=== PATIENT | female | born 1995 | race Caucasian/White ===

== ENCOUNTER → 2022-02-24 16:18 | Outpatient (CLI) | payer OTHER, SELFPAY ==
[2022-02-24 17:39] LABS: Add Manual Diff / Slide Review NO; Basophils Absolute Auto 0 /uL (0-100); Basophils Percent Auto 0.3 % (0-2); Eosinophils Absolute Auto 200 /uL (0-450); Eosinophils Percent Auto 1.8 % (2-4); Hematocrit 38.5 % (36-46); Hemoglobin 13.2 g/dL (12.0-16.0); Lymphocytes Absolute Auto 2200 /uL (1100-4500); Lymphocytes Percent Auto 17.5 % (25-40); Mean Corpuscular HGB Conc 34.3 % (30-36); Mean Corpuscular Hemoglobin 29.3 PG (26-34); Mean Corpuscular Volume 85.5 fL (80-100); Monocytes Absolute Auto 800 /uL (0-900); Monocytes Percent Auto 6.2 % (3-14); Neutrophils Absolute Auto 9200 /uL (1500-7000); Neutrophils Percent Auto 74.2 % (50-75); Platelet Count 222 X10^3/uL (150-400); Red Cell Distribution Width 14.2 % (11.6-14.8); White Blood Cell Count 12.4 X10^3/uL (4.5-11.0)
[2022-02-24 17:41] LABS: Appearance Urine UA CLEAR; Bilirubin Urine UA NEGATIVE (NEGATIVE); Color Urine UA YELLOW; Glucose Urine UA NEGATIVE (Negative); Ketones Urine UA NEGATIVE (NEGATIVE); Leukocyte Esterase Urine UA NEGATIVE (NEGATIVE); Nitrite Urine UA NEGATIVE (Negative); Occult Blood Urine UA NEGATIVE (Negative); Protein Urine UA NEGATIVE (Negative); Urobilinogen Urine UA 0.2 E.U./dL (0.2)
[2022-02-25 16:04] LABS: Hepatitis B Surface Antigen NEGATIVE s/c (NEGATIVE); Rubella Antibody IgG 8.7 IU/mL (>15)
[2022-02-25 16:21] LABS: HIV 1 & 2 Ab/Ag 4th Gen Combo NEGATIVE (NEGATIVE); Hep C Virus Ab w/Reflex Quant NEGATIVE s/c (NEGATIVE)
[2022-02-26 02:54] LABS: Varicella IgG Antibody 321 index (Immune >165)
[2022-02-26 08:34] LABS: RPR Screen Non Reactive (Non Reactive)
[2022-02-27 21:07] LABS: AFP, Serum 36.6 ng/mL (.); Estriol, Free 0.89 ng/mL (.); Inhibin A, Dimeric 100.13 pg/mL (.); Inhibin A, MoM 0.69 (.); Maternal Ethnicity Caucasian (.); Maternal Weight 161 lbs (.); Number of Fetuses No (.); OSBR Risk 1 IN 10000 (.); Results Report (.); Test Results *Screen Negative* (.); hCG, MoM 1.18 (.); hCG, Serum 40469 mIU/mL (.)
== END ==
PROVIDERS: Referring Provider Obstetrics & Gynecology; Visit Provider Obstetrics & Gynecology
DX: Z34.01 Encounter for supervision of normal first pregnancy, first trimester (principal); Z3A.16 16 weeks gestation of pregnancy
CPT/HCPCS: 36415; 80055; 81003; 82105; 82677; 84702; 86336; 86787; 86803; 86850; 86900; 86901; 87086; 87389

== ENCOUNTER → 2022-03-19 09:20 | Outpatient (CLI) | payer OTHER, SELFPAY ==
--- NOTE | 2022-03-19 09:21 | DI.US.S_ITS ---
PROCEDURE: US OB >= 14 WEEKS FETUS INDICATIONS: ANATOMY OUTSIDE/PRIOR DATING DATA: Last menstrual period (LMP): 10/30/2021. LMP-based estimated date of delivery (VANESSA): 08/06/2022. First dating scan (date and location): 01/21/2022. Estimated date of delivery (VANESSA) from first dating scan: . TECHNIQUE: Real-time scanning was performed of the fetus, with image documentation and biometric measurements. Endovaginal scanning: Not performed. COMPARISON: [facility], US, US OB <= 14 WEEKS FETUS, 01/21/2022, 12:47. FINDINGS: General: A single living intrauterine gestation is present. Presentation: Breech. Placenta: Placental position is posterior , without previa. Amniotic fluid index: 15.5 cm, normal range is 5-24 cm. Single deepest vertical pocket is 4.5 cm. heart rate: 149 beats per minute. Maternal cervical canal: 4.5 cm long. Normal lower limit is 2.5 cm. biometrics: Biparietal diameter: 20 weeks 0 day Head circumference: 20 weeks 4 days Abdominal circumference: 19 weeks 4 days Femur length: 20 weeks 6 days Clinically estimated gestational age: 20 weeks 1 day Composite gestational age from present scan: 20 weeks 2 days Estimated weight and percentile: 336 g; 46% Anatomic survey: Neuro: Ventricles are non-dilated at less than 10 mm. Cisterna magna is normal at 3-11 mm. Cerebellum is normal in size and morphology. Nuchal skin fold: Normal at less than 6 mm between 14-21 weeks gestational age. Face: Nose and lips, facial profile are normal. Spine: No evidence for spina bifida. Heart: Suboptimal visualization of 4-chambered heart and ventricular outflow tracts. Diaphragm: Diaphragm is intact. Stomach: Left-sided stomach is present. Kidneys: No hydronephrosis. Normal is less than 5 mm in 2nd trimester, less than 7 mm in 3rd trimester. Cord: 3-vessel cord has orthotopic insertion. Bladder: Normal in size. Extremities: All 4 extremities identified. IMPRESSION: 1. A single living intrauterine gestation with appropriate interval growth. 2. heart suboptimally visualized; otherwise normal anatomic survey. Follow-up examination is suggested. We strive to produce accurate, complete, and clear reports of imaging services. To assist us in improving patient care, this report was composed using standard report templates and voice recognition software. Therefore, it may contain abnormal punctuation, insertions and/or omissions. Occasional wrong-word or sound-alike substitutions may occur. Though we review the report and make efforts to correct it, we do recommend that the report be read carefully in proper context to recognize any text inaccuracies. Dictated by: Bennie Rodriguez M.D. on 03/19/2022 at 12:36 Approved by: Bennie Rodriguez M.D. on 03/19/2022 at 12:50
== END ==
PROVIDERS: Referring Provider Obstetrics & Gynecology; Visit Provider Obstetrics & Gynecology
DX: Z34.02 Encounter for supervision of normal first pregnancy, second trimester (principal); Z3A.20 20 weeks gestation of pregnancy
CPT/HCPCS: 76811

== ENCOUNTER → 2022-03-31 14:48 | Outpatient (CLI) | payer OTHER, SELFPAY ==
--- NOTE | 2022-03-31 14:49 | DI.US.S_ITS ---
PROCEDURE: US OB FOLLOW UP INDICATIONS: Heart not completely visualized on 20 week anatomy OUTSIDE/PRIOR DATING DATA: Last menstrual period (LMP): 10/30/2021. LMP-based estimated date of delivery (VANESSA): 08/06/2022. First dating scan (date and location): 01/21/2022. Estimated date of delivery (VANESSA) from first dating scan: 08/05/2022. TECHNIQUE: Real-time scanning was performed of the fetus, with image documentation. Endovaginal scanning: Not performed COMPARISON: [facility], OB >= 14 WEEKS FETUS, 03/19/2022, 9:34. FINDINGS: A single living intrauterine gestation is present. Presentation: Breech. Placenta: Placental position is posterior, without previa. Amniotic fluid index: 11.7 cm, normal range is 5-24 cm. Single deepest vertical pocket is 3.8 cm. heart rate: 149 beats per minute. Estimated gestational age from initial scan: 21 weeks 6 days. The heart and ventricular outflow tracts remain suboptimally visualized due to lie. IMPRESSION: 1. Single living intrauterine gestation in breech presentation. 2. The heart and ventricular outflow tracts remain suboptimally visualized due to lie. Repeat evaluation could be attempted as clinically indicated. Dictated by: Octavio Quinones M.D. on 04/01/2022 at 8:50 Approved by: Octavio Quinones M.D. on 04/01/2022 at 8:57
== END ==
PROVIDERS: Referring Provider Specialist; Visit Provider Specialist
DX: Z36.2 Encounter for other antenatal screening follow-up (principal); Z3A.21 21 weeks gestation of pregnancy
CPT/HCPCS: 76816

== ENCOUNTER → 2022-05-02 10:12 | Outpatient (CLI) | payer OTHER, SELFPAY ==
[2022-05-02 12:13] LABS: Hematocrit 33.6 % (36-46); Hemoglobin 11.3 g/dL (12.0-16.0)
[2022-05-02 13:41] LABS: GTT (PREG) 1 Hour PP 50gm Dose 102 mg/dL (76-139)
== END ==
PROVIDERS: Referring Provider Obstetrics & Gynecology; Visit Provider Obstetrics & Gynecology
DX: Z34.02 Encounter for supervision of normal first pregnancy, second trimester (principal); Z3A.26 26 weeks gestation of pregnancy
CPT/HCPCS: 36415; 82950; 85014; 85018

== ENCOUNTER → 2022-05-22 14:31 | Outpatient (CLI) | payer OTHER, SELFPAY ==
[2022-05-22 20:19] LABS: Urine N gonorrhoeae NOT DETECTED
[2022-05-22 20:21] LABS: Urine Chlamydia NOT DETECTED
== END ==
PROVIDERS: Visit Provider Physician Assistant Medical
DX: Z34.03 Encounter for supervision of normal first pregnancy, third trimester (principal); Z11.3 Encounter for screening for infections with a predominantly sexual mode of transmission; Z3A.29 29 weeks gestation of pregnancy
CPT/HCPCS: 87491; 87591

== ENCOUNTER → 2022-07-17 14:38 | Outpatient (CLI) | payer OTHER, SELFPAY ==
[2022-07-18 15:50] LABS: Strep Grp B PCR NEG for Grp B Strep
== END ==
PROVIDERS: Visit Provider Obstetrics & Gynecology
DX: Z34.03 Encounter for supervision of normal first pregnancy, third trimester (principal); Z3A.37 37 weeks gestation of pregnancy
CPT/HCPCS: 87653

== ENCOUNTER 2022-08-07 15:40 | Outpatient (CLI) | payer OTHER, SELFPAY ==
--- NOTE | 2022-08-07 20:12 | P.TNLD_ITS ---
Visit Information Visit Information Date of evaluation: 08/07/22 Primary OB Provider: Tiffany Cordova On-call OB Provider: Tiffany Cordova Reason for Evaluation: Yes non-stress test non-stress test reason: other (postdates) [facility] Medical History (Updated 03/21/22 @ 14:42 by Markie Barrientos MD) Migraine Surgical History (Updated 01/20/22 @ 10:36 by Aparna Adams, RN) History of appendectomy Family History (Updated 01/20/22 @ 10:38 by Aparna Adams, RN) Father Hypertension Diabetes mellitus Grandmother Diabetes mellitus Hyperthyroidism Grandmother Hyperlipidemia Social History marital status: number of children: 0 household members: spouse lives independently: Yes housing: house pets and animals: No education level: high school occupational status: employed current occupational exposures/hazards: No special cindy needs: No seatbelt use: always helmet use: Yes water heater temp set < 120 deg: Yes working smoke detector in home: Yes fire extinguisher in home: Yes carbon monox detector in home: Yes firearms in home: No do you feel safe at home: Yes Smoking Status: Never smoker second hand exposure: No alcohol intake: former substance use type: marijuana (Several years ago, never recent) during the past year weight has: remained stable well-balanced diet: daily or most days (Much improved since ) daily servings fruits/ve-4 caffeine: Yes Type(s) of exercise: walking Evaluation Evaluation Baseline heart rate: 135 Variability: Moderate (11-25) monitor accelerations: Present Monitor Decelerations: Absent Uterine Contraction Intensity: Mild Status: Category l Diagnosis, Plan/Disposition Plan/Disposition Plan: Assessment: 40+1 wks gestation Reactive NST Plan: [facility]'s Will reach out once induction is in place OB Disposition: home
== END 2022-08-07 16:22 | disposition home or self-care (01) ==
LOC: OB 08-11 15:42
PROVIDERS: Referring Provider Obstetrics & Gynecology; Visit Provider Obstetrics & Gynecology
DX: O48.0 Post-term pregnancy (principal); Z3A.40 40 weeks gestation of pregnancy
CPT/HCPCS: 59025; G0378; G0379

== ENCOUNTER 2022-08-09 11:18 | Outpatient (CLI) | payer OTHER, SELFPAY ==
--- NOTE | 2022-08-09 12:04 | PM.OBTRLD ---
Visit Information Visit Information Date of evaluation: 08/09/22 Primary OB Provider: Tiffany Cordova On-call OB Provider: Helen Smyth Reason for Evaluation: Yes rule out labor Vital Signs Vital Signs: Temperature 36.4? blood pressure 100/63 heart rate 91 PFSH Medical History Migraine Surgical History History of appendectomy Family History Father Hypertension Diabetes mellitus Grandmother Diabetes mellitus Hyperthyroidism Grandmother Hyperlipidemia Social History marital status: number of children: 0 household members: spouse lives independently: Yes housing: house pets and animals: No education level: high school occupational status: employed current occupational exposures/hazards: No special cindy needs: No seatbelt use: always helmet use: Yes water heater temp set < 120 deg: Yes working smoke detector in home: Yes fire extinguisher in home: Yes carbon monox detector in home: Yes firearms in home: No do you feel safe at home: Yes Smoking Status: Never smoker second hand exposure: No alcohol intake: former substance use type: marijuana (Several years ago, never recent) during the past year weight has: remained stable well-balanced diet: daily or most days (Much improved since ) daily servings fruits/ve-4 caffeine: Yes Type(s) of exercise: walking Evaluation Evaluation Baseline heart rate: 130 Variability: Moderate (11-25) monitor accelerations: Present Monitor Decelerations: Absent Contraction Frequency (minutes): 6 Category of Tracing: Reactive Diagnosis, Plan/Disposition Final Diagnosis (1) 40 weeks gestation of : Status: Acute Plan/Disposition Plan: 27-year-old at 40 weeks and 3 days gestation here to rule out labor. She is been having regular contractions though not yet painful. Denies leaking or bleeding. Contractions on the monitor were every 6 minutes and mild. NST reactive. Likely in early labor. Follow-up for signs of active labor, leaking, bleeding or decreased movement. Otherwise follow-up in clinic as scheduled. OB Disposition: home
== END 2022-08-09 12:10 | disposition home or self-care (01) ==
LOC: OB 08-11 15:41
PROVIDERS: Referring Provider Obstetrics & Gynecology; Visit Provider Obstetrics & Gynecology
DX: O47.1 False labor at or after 37 completed weeks of gestation (principal); O48.0 Post-term pregnancy; Z3A.40 40 weeks gestation of pregnancy
CPT/HCPCS: 59025; G0378; G0379

== ENCOUNTER 2022-08-12 06:46 | Inpatient (IN) | payer OTHER, SELFPAY ==
[2022-08-12 08:35] LABS: Hematocrit 35.2 % (36-46); Hemoglobin 11.3 g/dL (12.0-16.0); Mean Corpuscular HGB Conc 32.1 % (30-36); Mean Corpuscular Hemoglobin 24.2 PG (26-34); Mean Corpuscular Volume 75.3 fL (80-100); Platelet Count 236 X10^3/uL (150-400); Red Blood Cell Count 4.67 X10^6/uL (4.0-5.2); Red Cell Distribution Width 16.1 % (11.6-14.8); White Blood Cell Count 10.4 X10^3/uL (4.5-11.0)
[2022-08-12 08:53] LABS: COVID19 -Nasal RAPID Negative (Negative)
[2022-08-12] MEDS: LACTATED RINGERS 1,000 ML 100 ML IV (09:08)
[2022-08-12] MEDS: OXYTOCIN PREMIX 30 UNIT/500 ML PLAST..BAG IV (09:08)
[2022-08-12 13:30] VITALS: BP 128/81
[2022-08-12] MEDS: ePHEDrine 50 MG/ML VIAL (16:54)
--- NOTE | 2022-08-12 17:47 | P.HPOB_ITS ---
OB HPI Date/Time Date of admission: 08/12/22 Date Patient Seen: 08/12/22 Time Patient Seen: 07:45 History of Present Condition Chief complaint: INDUCTION VANESSA Calculator Estimated Delivery Date Method Current WG Current Estimate 08/06/22 LMP (Certain) 40w 6d Other Estimates 08/05/22 Ultrasound #1 41w 0d Estimated Gestational Age (weeks): 41 : 1 Para: 0 care: good care, initiated at week # (11), number of visits (12) and pounds weight gain (26) Dating criteria OB: LMP confirmed by 1st trimester US Ultrasounds: normal 1st trimester US and normal mid trimester US Obstetrical complications: none Medical complications OB: none Indications Indication for induction OB: post dates Preadmission Labs Last OB Lab Results: Blood Type O Positive 08/12/22 08:00 Antibody Screen Negative 08/12/22 08:00 Hematocrit 35.2 % (36-46) L 08/12/22 08:00 Hemoglobin 11.3 g/dL (12.0-16.0) L 08/12/22 08:00 Hepatitis B Surface Antigen Negative s/c (NEGATIVE) 02/24/22 16 :48 Hepatitis C Antibody Negative s/c (NEGATIVE) 02/24/22 16:48 Rubella Antibody 8.7 IU/mL (>15) L 02/24/22 16:48 Varicella-Zoster IgG Antibody 321 index (Immune >165) 02/24/22 16:48 Glucose 1 Hour 102 mg/dL (76-139) 05/02/22 11:20 Group B Streptococcus (PCR) Neg for grp b strep 07/17/22 14:38 -: Chlamydia screen: negative, Gonorrhea screen: negative and Urine: negative -: PAP smear: Normal Genetic Screens: Quad screen: Normal External Labs -: Urine: negative Evaluation Evaluation Baseline heart rate: 135 Variability: Moderate (11-25) monitor accelerations: Present Monitor Decelerations: Absent Dilation (cm): 3 Effacement (%): 90 station: -1 [facility] Medical History Migraine Surgical History History of appendectomy Family History Father Hypertension Diabetes mellitus Grandmother Diabetes mellitus Hyperthyroidism Grandmother Hyperlipidemia Social History marital status: number of children: 0 household members: spouse lives independently: Yes housing: house pets and animals: No education level: high school occupational status: employed current occupational exposures/hazards: No special cindy needs: No seatbelt use: always helmet use: Yes water heater temp set < 120 deg: Yes working smoke detector in home: Yes fire extinguisher in home: Yes carbon monox detector in home: Yes firearms in home: No do you feel safe at home: Yes Smoking Status: Never smoker second hand exposure: No alcohol intake: former substance use type: marijuana (Several years ago, never recent) during the past year weight has: remained stable well-balanced diet: daily or most days (Much improved since ) daily servings fruits/ve-4 caffeine: Yes Type(s) of exercise: walking Meds Home Medications and Allergies Home Medications Medication Instructions Recorded Confirmed Type prenat.vits,dino,zzj-oird-qvyin 1 tab PO DAILY 07/17/22 08/07/22 History Allergies Allergy/AdvReac Type Severity Reaction Status Date / Time No Known Allergies Allergy Verified 08/07/22 15:10 OB Exam Narrative Exam Narrative: Generally: Patient is sitting up in bed, no acute distress Lungs: Clear to auscultation bilaterally Cardiovascular: Regular rate and rhythm Fundal height: 41 cm Estimated weight: 8 lb Extremities: Trace edema Objective Labs Result Diagrams: 08/12/22 08:00 Labs: Laboratory Results - last 24 hr 08/12/22 08/12/22 08/12/22 08:00 08:00 08:00 WBC 10.4 RBC 4.67 Hgb 11.3 L Hct 35.2 L MCV 75.3 L MCH 24.2 L MCHC 32.1 RDW 16.1 H Plt Count 236 SARS-CoV-2 (PCR) Negative Blood Type O Positive Antibody Screen Negative Assessment and Plan Assessment and Plan Assessment and Plan narrative: Assessment: 27-year-old 1 para 0 at 41 weeks gestation for induction of labor Favorable cervix to spontaneous vaginal delivery GBS negative Plan: Pitocin per protocol Artificial rupture of membranes when able Expected management Time Spent with Patient Total time spent with greater than 50% in coordination of care (as documented) at patient's floor/unit and/or counseling patient:: 15-24 minutes
--- NOTE | 2022-08-12 17:52 | PM.OBPNLAB ---
Date/Time Date Patient Seen: 08/12/22 Time Patient Seen: 11:45 Pain Control Pain control: tolerating well Pelvic Exam Dilation (cm): 3 Effacement (%): 90 station: -1 Contractions Contractions on admission: none Monitor mode: External Pitocin rate (mU/min): 5 Contraction frequency (min): 3 Contraction duration (min): 1 Contraction intensity: Mild Status status: Category l Heart Rate Baseline: 135 Monitor Accelerations: Present Monitor Decelerations: Absent Monitor Variability: Moderate Assessment and Plan Assessment: induction ongoing Comments: AROM with light MSF Epidural prn
--- NOTE | 2022-08-12 17:53 | PM.EVENT ---
Event Note Date Patient Seen: 08/12/22 Time Patient Seen: 17:53 Event Note (Rapid Response, Code, or fall): Called to see patient for heart rate deceleration. Pitocin was turned off. scalp electrode and intrauterine pressure catheter placed. With contractions with low [place] units, heart rate dropping into the 80s to 90s. Have tried position changes, fluid bolus, O2 per face mask. Assessment: intolerance of labor Remote from delivery Plan: Primary low-transverse section The risks, benefits, and alternatives to the procedure were explained to the patient. The risks including bleeding, infection, injury to the bowel, bladder, or ureters. She understands these risks and agrees to proceed. A full par Q was held and consent form was signed. Pediatrics notified RT notified
[2022-08-12] MEDS: CEFAZOLIN 2 GM/100 ML PREMIX 100 ML IV (18:05)
[2022-08-12] MEDS: AZITHROMYCIN 500 MG in DEXTROSE 5% IN WATER 250 ML 250 MG IV (18:16)
--- NOTE | 2022-08-12 18:28 | SUR.OPER ---
Supine on Padded OR bed, head on pillow, safety belt at thigh, arms secured on padded arm boards at <90 degrees abduction. Bump under right buttock. Legs uncrossed with pillow under knees, gel pad to heels, tape over blanket to lower legs.
--- NOTE | 2022-08-12 19:03 | SUR.OPER ---
viable baby boy born at 1833, FHT 155-160 prior to incision, 8/9, cord blood and placenta (delivered at 1839) taken to OB per OB Nurse
--- NOTE | 2022-08-12 19:14 | PM.OBCS.1 ---
Operative Date/Time/Diagnoses Date of procedure: 08/12/22 Time of procedure: 19:14 Pre-op diagnosis: Forty-one weeks gestation intolerance of labor, remote from delivery Post-op diagnosis: same Procedure & Clinicians Procedure: Primary low-transverse section Same procedure as scheduled: Yes Indications: 41 weeks gestation intolerance of labor, remote from delivery Surgeon: Tiffany Glasgow Yes if Unassisted: No Forensic Specialist: Nakia Valera Reason for Forensic Specialist: The public relations assistant was necessary to retract upon entry into the abdomen and uterus. She assisted with fundal pressure on delivery of the infant. She assisted with retraction, clipping of suture, and closure of the contralateral fascia closing of the uterus and abdomen. Anesthesia Type: Epidural (With Duramorph) Operative Notes Findings: Live male infant in the LOT presentation Normal uterus, tubes, and ovaries Closure Type: primary Specimen(s): cord blood, cord pH and placenta Intraoperative meds administered: Duramorph, Ketorolac and Pitocin Applied: Catheter (To continuous drainage) Estimated Blood Loss (mL): 350 Blood products transfused: none Procedure in detail: The patient was taken to the operating room where she was placed in the dorsal supine position with a leftward tilt. She was prepped and draped in the usual sterile fashion. A timeout was performed. After epidural analgesia was found to be adequate, a Pfannenstiel skin incision was made 2 fingerbreadths above the pubic symphysis and carried through to the underlying layer fascia. The fascia was nicked in the midline, and the incision extended bilaterally with the Vidal scissors. The superior aspect of the fascial incision was grasped with a [place] clamps, elevated, and the underlying rectus muscles dissected off sharply and bluntly. Attention was then turned to the inferior aspect of this incision which in a similar fashion was grasped with a [place] clamps, elevated, and the underlying rectus muscles dissected off sharply and bluntly. The rectus muscles were in the midline. The peritoneum was identified, grasped between 2 hemostats, and entered sharply with the Metzenbaum scissors. This incision was extended superiorly and inferiorly with good visualization of the bladder. The bladder blade was inserted with difficulty due to narrow pelvic inlet. The vesicouterine peritoneum was identified, grasped with the pickup, and entered sharply with the Metzenbaum scissors. This incision was extended bilaterally, and the bladder flap was created digitally. The bladder blade was reinserted. The lower uterine segment was incised in a transverse fashion with the scalpel. Upon entering the amniotic sac there was a small amount of meconium-stained amniotic fluid. The infant's head was delivered with vacuum assistance. The remainder of the body delivered without difficulty. The cord was double clamped and cut after 1 minute. The was handed off to waiting RN and RT. The placenta was delivered by expression. The uterus was cleared of all clots and debris. The uterine incision was repaired with #1 chromic in a running interlocking fashion, and a second layer the same suture was used for an imbricating layer. Hemostasis was achieved. The tubes and ovaries were examined and were found to be normal. The gutters were cleared of all clots and debris. The bladder flap was reapproximated using 2-0 Vicryl in a running fashion. The parietal peritoneum was closed using 2-0 Vicryl in a running fashion. The fascia was reapproximated using 0 Vicryl in a running fashion. Subcutaneous layer was copiously irrigated with warm normal saline. 5 simple interrupted sutures of 3-0 Vicryl were placed to reapproximate the subcutaneous layer. The skin was closed with 4-0 Monocryl in a subcuticular fashion. Steri-Strips were placed. An Aquacel dressing was placed. The uterus was expressed of a small amount of old blood. Sponge, lap, and instrument counts were correct x-2. The patient tolerated the procedure well, and was taken to PACU in stable condition. Complications: none Baby 1: Gender: Male Presentation: vertex Position: Left Occiput Anterior Placental Delivery Description: Expressed Cord Vessel Description: 3 Vessels and Clamped/Cut (After 1 minute) score (1 min): 8 score (5 min): 9 weight: 8 lb 4 oz Post-operative Condition: stable Disposition: PACU Aftercare: routine postop
[2022-08-12 19:18] VITALS: BP 125/65; PULSE 91; RESP 18; TEMP 36.3; O2SAT 92
[2022-08-12 19:23] VITALS: BP 112/75; PULSE 92; RESP 23; O2SAT 100
[2022-08-12 19:28] VITALS: BP 124/78; PULSE 89; RESP 16; TEMP 36.3; O2SAT 100
[2022-08-12 19:33] VITALS: BP 119/82; PULSE 94; RESP 16; O2SAT 99
[2022-08-12] MEDS: OXYCODONE IR 5 MG TABLET PO (21:24)
[2022-08-12] MEDS: ACETAMINOPHEN 325 MG TABLET 650 MG PO (21:25)
[2022-08-13] MEDS: ACETAMINOPHEN 325 MG TABLET 650 MG PO ×3 (05:06→23:45)
[2022-08-13] MEDS: KETOROLAC 30 MG/ML VIAL IV ×3 (05:06→17:09)
[2022-08-13 06:01] LABS: Hematocrit 28.9 % (36-46); Hemoglobin 9.3 g/dL (12.0-16.0)
[2022-08-13] MEDS: DOCUSATE 100 MG CAPSULE PO (09:04)
[2022-08-13] MEDS: PRENATAL VIT,CALC/IRON/FOLIC 1 TABLET 1 TAB PO (09:05)
--- NOTE | 2022-08-13 17:35 | PM.OBPN.1 ---
Subjective - OB Subjective Patient comments: no complaints, pain well controlled and incisional pain (mild) [place] baby status: doing well and nursing well [place] feeding status: exclusively breast feeding Date Patient Seen: 08/13/22 Time Patient Seen: 17:36 Interval history: Postop day # 1 status post primary low-transverse section for intolerance of labor, remote from delivery. Horta catheter out and patient has been able to void. going well. Bleeding tapering. Pain well controlled. No nausea or vomiting. She is passing gas. Exam Vital Signs (past 8 hours): Oxygen Delivery Method Room Air Narrative Exam Narrative: Generally: Patient walking around in room, no acute distress Fundus: Firm at U -1 Incision: Clean dry and intact with Aquacel dressing Extremities: 1+ edema, negative Homans Objective Labs Result Diagrams: 08/13/22 05:41 Labs: Laboratory Results - last 24 hr 08/13/22 05:41 Hgb 9.3 L Hct 28.9 L Assessment & Plan Plan day: 1 plan OB: routine postop care Time Spent With Patient Time: Total time spent is greater than 50% in coordination of care (as documented) at patient's floor/unit and/or counseling patient: Time with patient: 15-24 minutes
[2022-08-13] MEDS: IBUPROFEN 600 MG TABLET PO (23:46)
[2022-08-14] MEDS: IBUPROFEN 600 MG TABLET PO ×2 (08:42→14:24)
[2022-08-14] MEDS: PRENATAL VIT,CALC/IRON/FOLIC 1 TABLET 1 TAB PO (08:42)
[2022-08-14] MEDS: DOCUSATE 100 MG CAPSULE PO (08:42)
[2022-08-14] MEDS: ACETAMINOPHEN 325 MG TABLET 650 MG PO ×2 (08:43→14:24)
--- NOTE | 2022-08-14 09:31 | P.DS_ITS ---
Discharge Providers Provider Date of admission: 08/12/22 06:46 Discharge Date: 08/14/22 Primary care physician: Kellen CORTES Provider Consults: 08/12/22 20:59 Consult to Timber Harvester Operator Routine Comment: Discharge provider: Tiffany Cordova MD Summary Hospital Course Date Patient Seen: 08/14/22 Time Patient Seen: 09:31 Diagnoses: Forty-one weeks gestation Induction of labor intolerance of labor Primary low-transverse section Meconium-stained amniotic fluid Hospital Course: Patient is a 27-year-old 1 para 1 who presented on August 12, 2022 for a scheduled induction of labor at 41 weeks gestation. She was started on Pitocin. The heart rate dropped after an epidural down into the 70s to 80s. Patient received ephedrine to bring blood pressure back up. heart rate recovered. Pitocin was stopped during that episode. Even without Pitocin being restarted, baby's heart rate was dropping intermittently with very mild contractions. A decision was made to go to primary low-transverse sect ion. There was found to be thicker meconium stained amniotic fluid up higher and the uterus. Patient's course was unremarkable. Her Horta catheter was removed on postop day #1. She was able to void without the catheter. Her bleeding has been tapering. Pain has been well controlled with ibuprofen and Tylenol. She is tolerating a diet. No nausea or vomiting. is going well. Peripartum Data Infant Delivery Method: Emergency Section Procedures: Pitocin induction of labor Epidural analgesia scalp electrode Intrauterine pressure catheter Primary low-transverse section complications: none [place] 1: Gender: Male Disposition of : home Status at Discharge Cognitive/behavioral status at discharge: oriented Functional status at discharge: independent ambulation Overall status at discharge: patient is progressing back to baseline Time Spent with Patient Time attestation: Total time spent providing and/or coordinating discharge services: Time spent: Less than 30 minutes Objective Labs Result Diagrams: 08/13/22 05:41 Exam Vital Signs (past 8 hours): Oxygen Delivery Method Room Air Narrative Exam Narrative: Generally: Patient is sitting up on side of bed, no acute distress Lungs: Clear to auscultation bilaterally Cardiovascular: Regular rate and rhythm Fundus: Firm at U -1 Incision: Clean dry and intact with Aquacel dressing Extremities: 1+ edema, negative Homans Discharge Plan Discharge Plan Patient Disposition: Home Provider Discharge Comment: Call with fever, chills, or redness or drainage around the incision Call with bleeding more than a pad in an hour Call with leg pain, redness, or warmth Ibuprofen 600 mg every 6 hours as needed Tylenol 650 mg every 6 hours as needed Discharge orders & Medications Prescriptions: Continued prenat.vits,dino,[id number]-sbnye Tablet 1 tab PO DAILY Follow up/Referrals: Tiffany Cordova MD [Physician] - (Incision check w/ Dr. Cordova: , Aug 21 @ 3:30pm 6 week appt: Sep 24 @ 9am) Diet/Activity/Treatments Diet: Regular Activity: Nothing in the vagina for 6 weeks No heavy lifting, nothing more than a gal of milk Skin/Wound/Dressing Care Report to your healthcare provider any signs of infection, such as:: chills, fever, increased pain, unusual drainage and unusual redness Visit Report/Discharge Packet Instructions: DI for Stand Alone Forms: Discharge: Care, Patient Portal/API, Stroke Signs & Symptoms Discharge Data Primary Care Provider: Kellen Huang
[2022-08-14] MEDS: MEASLES,MUMPS,RUBELLA VACC/PF 0.5 ML VIAL SUBCUT (13:15)
== END 2022-08-14 14:50 | disposition home or self-care (01) | DRG 788 ==
PROVIDERS: Admitting Provider Obstetrics & Gynecology; Referring Provider Obstetrics & Gynecology; Visit Provider Obstetrics & Gynecology
PROC: 10D00Z1 Extraction of Products of Conception, Low, Open Approach (ICD-10-PCS; CPT 59514; principal; 2022-08-12 18:15)
DX: O48.0 Post-term pregnancy (principal); O76 Abnormality in fetal heart rate and rhythm complicating labor and delivery; Z3A.41 41 weeks gestation of pregnancy; Z37.0 Single live birth; Z20.822 Contact with and (suspected) exposure to COVID-19
CPT/HCPCS: 36415; 59050; 59510; 59514; 85014; 85018; 85027; 86850; 86900; 86901; 87635; C9803; G0379; J0690; J1885; J2274; J2590

== ENCOUNTER → 2022-09-08 15:05 | Outpatient (CLI) | payer OTHER, SELFPAY | PROVIDERS: Visit Provider Obstetrics & Gynecology | DX: R31.9 Hematuria, unspecified (principal) | CPT/HCPCS: 87086 ==

== ENCOUNTER 2022-10-05 03:35 | Emergency (ER) | payer OTHER, SELFPAY ==
--- NOTE | 2022-10-05 03:38 | ED_ITS ---
HPI - General Adult <Oj Jaramillo DO - Last Filed: 10/06/22 03:55> General Chief complaint: Urogenital-Female Stated complaint: RT. SIDE FLANK PAIN Time Seen by Provider: 10/05/22 03:37 History of Present Illness HPI narrative: 27F non smoker without significant chronic medical history presents with a chief complaint of about 2 days of urinary complaints including dysuria, frequency and urgency as well as right flank pain. She is had low-grade subjective fever. She denies nausea, vomiting or diarrhea. She has had no runny nose, sore throat or cough. She delivered a child on 08/12 and is no longer . Her pain is worse when she moves and improves with rest. Related Data Home Medications Medication Instructions Recorded Confirmed prenat.vits,dino,[id number] 1 tab PO DAILY 07/17/22 09/24/22 Previous Rx's Medication Instructions Recorded cefpodoxime 200 mg tablet 200 mg PO BID 10 days #20 tabs 10/05/22 Allergies Allergy/AdvReac Type Severity Reaction Status Date / Time No Known Allergies Allergy Verified 09/24/22 09:14 Review of Systems <Oj Jaramillo DO - Last Filed: 10/06/22 03:55> Review of Systems Narrative: GENERAL: Denies chills, fatigue, malaise, fever, sweats. HEENT: Denies sinus pain, ear pain, sore throat, difficulty swallowing, dizziness. RESPIRATORY: Denies dyspnea, cough, wheezing, hemoptysis, sputum. CARDIOVASCULAR: Denies chest pain, palpitations, orthopnea, edema, GASTROINTESTINAL: Denies nausea, vomiting, abdominal pain, diarrhea, constipation, melena. : See HPI MUSCULOSKELETAL: denies weakness, joint pain, or bony pain SKIN: Denies rash, skin lesions, or other NEUROLOGIC: Denies weakness, headache, numbness, change in speech, confusion, seizures, incoordination. PSYCHIATRIC: No concerning psychosocial issues. 12 point review of systems is negative except for those stated above Patient History <Oj Jaramillo DO - Last Filed: 10/06/22 03:55> Medical History Migraine Surgical History History of appendectomy Family History Father Hypertension Diabetes mellitus Grandmother Diabetes mellitus Hyperthyroidism Grandmother Hyperlipidemia Social History marital status: number of children: 0 household members: spouse lives independently: Yes housing: house pets and animals: No education level: high school occupational status: employed current occupational exposures/hazards: No special cindy needs: No seatbelt use: always helmet use: Yes water heater temp set < 120 deg: Yes working smoke detector in home: Yes fire extinguisher in home: Yes carbon monox detector in home: Yes firearms in home: No do you feel safe at home: Yes Smoking Status: Never smoker second hand exposure: No alcohol intake: former substance use type: marijuana (Several years ago, never recent) during the past year weight has: remained stable well-balanced diet: daily or most days (Much improved since ) daily servings fruits/ve-4 caffeine: Yes Type(s) of exercise: walking Smoking Status: Never smoker Exam <Oj Jaramillo DO - Last Filed: 10/06/22 03:55> Narrative Exam Narrative: GENERAL: [27] year old patient appears stated age. Well-developed patient, in mild distress. HEAD: Atraumatic. Normocephalic. EYES: Pupils equal round and reactive. Extraocular motions intact. No scleral icterus. No injection or drainage. ENT: Nose without bleeding, purulent drainage. Throat without erythema, tonsillar hypertrophy or exudate. Airway patent. NECK: Trachea midline. Non tender CARDIOVASCULAR: Regular rate and rhythm without murmurs, gallops, or rubs. RESPIRATORY: Clear to auscultation. Breath sounds equal bilaterally. No wheezes, rales, or rhonchi. GASTROINTESTINAL: Abdomen soft, non-tender, nondistended. EXTREMITIES: No edema or joint tenderness. BACK: Nontender without deformity or crepitance. No flank tenderness. NEURO: AOx3. SKIN: No rash or erythema of visible areas Initial Vital Signs Initial Vital Signs: Vital Signs Temperature 98.5 F 10/05/22 03:47 Pulse Rate 76 10/05/22 03:47 Respiratory Rate 16 10/05/22 03:47 Blood Pressure 149/97 H 10/05/22 03:47 Pulse Oximetry 99 10/05/22 03:47 Oxygen Delivery Method 10/05/22 03:47 <DO Trista Contreras Last Filed: 10/05/22 08:42> Initial Vital Signs Initial Vital Signs: Vital Signs Temperature 98.5 F 10/05/22 03:47 Pulse Rate 76 10/05/22 03:47 Respiratory Rate 16 10/05/22 03:47 Blood Pressure 149/97 H 10/05/22 03:47 Pulse Oximetry 99 10/05/22 03:47 Oxygen Delivery Method 10/05/22 03:47 Course <DO Trista Jimenez Last Filed: 10/06/22 03:55> Orders Ordered: Discontinued Medications Cefazolin Sodium (Cephalexin 250 Mg Prepack) 1 bottle MISC SEEINSTR ONE Stop: 10/05/22 03:50 Last Admin: 10/05/22 04:28 Dose: 8 cap Documented By: RADHIKA Vital Signs Vital signs: Vital Signs - 8 hr 10/05/22 03:47 10/05/22 04:29 10/05/22 04:29 Temperature 98.5 F Pulse Rate 76 79 Respiratory Rate 16 Blood Pressure 149/97 H 151/99 H Pulse Oximetry 99 97 Oxygen Delivery Method Room Air Room Air 10/05/22 04:30 Temperature Pulse Rate 79 Respiratory Rate Blood Pressure Pulse Oximetry 98 Oxygen Delivery Method Room Air <DO Trista Contreras Last Filed: 10/05/22 08:42> Orders Ordered: Discontinued Medications Cefazolin Sodium (Cephalexin 250 Mg Prepack) 1 bottle MISC SEEINSTR ONE Stop: 10/05/22 03:50 Last Admin: 10/05/22 04:28 Dose: 8 cap Documented By: RADHIKA Vital Signs Vital signs: Vital Signs - 8 hr 10/05/22 03:47 10/05/22 04:29 10/05/22 04:29 Temperature 98.5 F Pulse Rate 76 79 Respiratory Rate 16 Blood Pressure 149/97 H 151/99 H Pulse Oximetry 99 97 Oxygen Delivery Method Room Air Room Air 10/05/22 04:30 Temperature Pulse Rate 79 Respiratory Rate Blood Pressure Pulse Oximetry 98 Oxygen Delivery Method Room Air Medical Decision Making <DO Trista Jimenez Last Filed: 10/06/22 03:55> Lab Data Labs: Lab Results 10/05/22 10/05/22 Range/Units 03:40 03:40 Ur Bilirubin Confirm Negative (Negative) Urine RBC 1-5/hpf (0-5/HPF) Urine WBC None seen (0-5/HPF) Ur Squamous Epith Cells 1-5 /hpf (0-5/HPF) Urine Bacteria None seen (None) Ur Culture Indicated? Cult not indicated Micro UA Comment * Point of Care Testing Test Results Negative Urine Dip Bedside Urine Glucose 250 mg/dl Bedside Urine Bilirubin +++ 4 Bedside Urine Ketone +/- 5 Urine Specific [place] 1.025 Bedside Urine Occult Blood + Bedside Urine pH 5.0 Bedside Urine Protein - Negative Bedside Urine Urobilinogen 3+ 8mg Bedside Urine Nitrite + Positive Bedside Urine Leukocytes ++ 125 Esterase Point of care testing: Point of Care Testing Test Results Negative Urine Dip Bedside Urine Glucose 250 mg/dl Bedside Urine Bilirubin +++ 4 Bedside Urine Ketone +/- 5 Urine Specific [place] 1.025 Bedside Urine Occult Blood + Bedside Urine pH 5.0 Bedside Urine Protein - Negative Bedside Urine Urobilinogen 3+ 8mg Bedside Urine Nitrite + Positive Bedside Urine Leukocytes ++ 125 Esterase MDM Narrative Medical decision making narrative: [27] year old patient presents with right flank pain as well as dysuria, frequency and urgency Multiple etiologies for patient's symptoms considered including, but not limited to: [Cystitis, pyelonephritis, kidney stone, versus other] Prior Charts reviewed in our EMR Primary Historian: patient Labs reviewed and interpreted by myself: UA with blood and evidence of UTI Imaging reviewed: CT KUB Consultations: Patient's symptoms improved over duration of stay with above-stated therapies. Findings and discharge diagnosis discussed with patient/family followed by verbalization of understanding Return precautions discussed with patient/family whom verbalize understanding of diagnosis and plan <Saundra Quintero, DO - Last Filed: 10/05/22 08:42> Lab Data Labs: Lab Results 10/05/22 10/05/22 Range/Units 03:40 03:40 Ur Bilirubin Confirm Negative (Negative) Urine RBC 1-5/hpf (0-5/HPF) Urine WBC None seen (0-5/HPF) Ur Squamous Epith Cells 1-5 /hpf (0-5/HPF) Urine Bacteria None seen (None) Ur Culture Indicated? Cult not indicated Micro UA Comment * Point of Care Testing Test Results Negative Urine Dip Bedside Urine Glucose 250 mg/dl Bedside Urine Bilirubin +++ 4 Bedside Urine Ketone +/- 5 Urine Specific [place] 1.025 Bedside Urine Occult Blood + Bedside Urine pH 5.0 Bedside Urine Protein - Negative Bedside Urine Urobilinogen 3+ 8mg Bedside Urine Nitrite + Positive Bedside Urine Leukocytes ++ 125 Esterase Point of care testing: Point of Care Testing Test Results Negative Urine Dip Bedside Urine Glucose 250 mg/dl Bedside Urine Bilirubin +++ 4 Bedside Urine Ketone +/- 5 Urine Specific [place] 1.025 Bedside Urine Occult Blood + Bedside Urine pH 5.0 Bedside Urine Protein - Negative Bedside Urine Urobilinogen 3+ 8mg Bedside Urine Nitrite + Positive Bedside Urine Leukocytes ++ 125 Esterase MDM Narrative Additional Information: 10/05/22 [place]: Dr. Markie James radiology called with overread results and notes possible faint gallstones and mild gallbladder wall thickening. Patient chart reviewed. Noted to have nitrate positive urine and suspected pyelonephritis. No labs done. Patient contacted at [phone] regarding results, went to [employer], mailbox if full. Tried alternative number at [phone] noted for , able to talk with patient and states symptoms were urinary. No right upper quadrant pain. We reviewed her CT findings from today and patient is aware, all questions answered. Unaware of return precautions if she is having any new right upper quadrant pain, pain with palpation, fevers, nausea vomiting or other changes. Discharge Plan Departure Patient Disposition: Home Clinical Impression: Pyelonephritis Instructions: DI for Kidney Infection Activity Restrictions/Additional Instructions: *You have been diagnosed with [pyelonephritis] *What to do: *Please continue to take your regular medications as directed. [x ] New medication prescriptions sent to your pharmacy: [[facility] ] [ ] New medication written as a paper prescription [ ] No new medications given *Please follow up with your primary care provider in 2-3 days, call for an appointment. Let them know you were seen in the Emergency Department and that we ask that you be seen in follow up. We will electronically transmit a record of today's note if your PCP is in our system *If you do not have a primary care provider please contact the [facility] Resource line at [phone]. They will ask some questions about your medical history and help get you set up with a doctor in the community. *Return to Emergency Department if you should have any new, worsening or concerning symptoms, such as [fever greater than 101 F, shaking chills, worsening pain, persistent vomiting or other bothersome symptoms] Prescriptions: New cefpodoxime 200 mg tablet 200 mg PO BID 10 Days Qty: 20 0RF Rx Instructions: must administer with a meal/food No Action prenat.vits,dino,[id number] Tablet 1 tab PO DAILY Referrals: ProviderKellen [Primary Care Provider] - Stand Alone Forms: Patient Portal/API
[2022-10-05 03:47] VITALS: BP 149/97; PULSE 76; RESP 16; TEMP 36.9; O2SAT 99; BMI 35.5
--- NOTE | 2022-10-05 03:48 | DI.CT.S_ITS ---
PROCEDURE: CT KIDNEY URETER BLADDER (KUB) INDICATIONS: R flank pain TECHNIQUE: Axial sections were acquired from the lung bases to the pubic symphysis. Coronal and sagittal reformats were performed. For radiation dose reduction, the following was used: automated exposure control, adjustment of mA and/or kV according to patient size. COMPARISON: None. FINDINGS: Image quality: Excellent. Lung bases: Unremarkable. Heart: No significant findings. URINARY: Right Kidney: No stones or hydronephrosis. Right Ureter: No hydroureter. Left Kidney: No stones or hydronephrosis. Left Ureter: No hydroureter. Bladder: Normal wall thickness. No stones. ABDOMEN: Liver: Unremarkable. Gallbladder: Suggestion of possible very faint non calcified gallstones. Question mild gallbladder wall thickening. Biliary ducts: Unremarkable. Pancreas: Unremarkable. Spleen: Unremarkable. Adrenal Glands: Unremarkable. Stomach and Bowel: Stomach, small bowel loops, and colon are unremarkable. Peritoneum: No abnormal intraperitoneal fluid. No free air. Ventral Wall: No hernia. Abdominal Nodes: No enlarged retroperitoneal or mesenteric lymph nodes. Vessels: Aorta and inferior vena cava are normal in size. PELVIS: Pelvic Organs: Unremarkable. Pelvic Nodes: Unremarkable. Miscellaneous: No inguinal hernias are seen. Bones: Unremarkable. IMPRESSION: 1. Probable cholelithiasis. Question gallbladder wall thickening. 2. No renal stones or ureteral stones. No hydronephrosis. Comment: Preliminary interpretation provided by [facility]. Comment: Findings were discussed with Dr. Quintero at the time of study dictation on 10/05/2022 at 0829 hours. Dictated by: Jacob Aden M.D. on 10/05/2022 at 8:23 Approved by: Jacob Aden M.D. on 10/05/2022 at 8:31
[2022-10-05 04:01] LABS: Ictotest Urine Negative (Negative)
[2022-10-05 04:12] LABS: Bacteria Urine None Seen; Culture Indicated Urine Cult Not Indicated; RBC Urine 1-5/HPF (0-5/HPF); Squamous Epithelial Cell Urine 1-5 /HPF (0-5/HPF); WBC Urine None Seen (0-5/HPF)
[2022-10-05] MEDS: cephALEXin 250 MG PREPACK 1 BOTTLE MISC (04:28)
[2022-10-05 04:29] VITALS: BP 151/99; PULSE 79; O2SAT 97
[2022-10-05 04:30] VITALS: PULSE 79; O2SAT 98
--- NOTE | 2022-10-05 04:34 | PC.NURSE ---
Patient assessment completed by Dr. Jaramillo. This nurse in agreement.
== END 2022-10-05 04:36 | disposition home or self-care (01) ==
PROVIDERS: Emergency Provider Emergency Medicine
DX: N12 Tubulo-interstitial nephritis, not specified as acute or chronic (principal)
CPT/HCPCS: 74176; 81003; 81015; 81025; 99282; 99284

== ENCOUNTER 2022-10-09 03:15 | Observation (INO) | payer OTHER, SELFPAY ==
[2022-10-09] VITALS (16 sets, daily range): BP systolic 119–142; BP diastolic 63–87; PULSE 61–99; RESP 12–24; TEMP 36.6–36.8; O2SAT 92–100; BMI 34.7; BMI 28.6
--- NOTE | 2022-10-09 | PATH_ITS ---
[facility] Accession Number: [id number] No. of containers..01 Tissue . 01 Material submitted: . gallbladder - GALLBLADDER . 01 Diagnosis: Gallbladder, Cholecystectomy: Mild chronic calculous cholecystitis and cholesterolosis. Negative for atypia and malignancy. MRV 10/14/2022 1404 Local . 01 Electronically signed: . Camila Santos MD, Pathologist NPI- [id number] . 01 Gross description: . The specimen is received in formalin labeled with the patient's name, , and gallbladder, and consists of an intact gallbladder measuring 8.0 x 2.4 x 1.8 cm with pink to congested smooth serosa and a rough and unremarkable hepatic surface. The cystic duct is received closed with a clamp, is inked blue, and no pericystic lymph node is identified. The lumen contains multiple green to yellow bosselated calculi admixed with solidified pale green bile with the calculi measuring up to 0.5 cm in greatest dimension grossly obstructing the cystic duct. The mucosa is red to sher and trabecular with no pinpoint yellow areas of discoloration, polyps, or lesions identified. The lerner average 0.4 cm thick, and automotive leasing sales representative sections to include the cystic duct margin and full thickness sections are submitted in cassette A1. ([id number]) /CARLIN 10/10/2022 1127 Local . 01 Pathologist provided ICD-10: K80.20 . 01 CPT . 301845 Specimen Comment: A courtesy copy of this report has been sent to [phone] Performed at: 01 [facility] [address] [place] [address] [address] [facility], [place], [place] [id number] MD Ajay Monsivais MD Phone: [phone]
--- NOTE | 2022-10-09 03:17 | ED_ITS ---
HPI - Abdominal Pain General Chief Complaint: Abdominal Pain Stated Complaint: level 6 pain of gall bladder Time Seen by Provider: 10/09/22 03:17 History of Present Illness HPI narrative: 27F non smoker without significant chronic medical history presents with a chief complaint of?right upper quadrant pain with radiation to her back and shoulder with associated nausea. She had been seen and evaluated earlier in the week by myself and had presented with urinary complaints and flank pain in the absence of abdominal pain and was placed on antibiotics and diagnosed with pyelonephritis. She feels significantly better in terms of her urinary complaints. There was an over-read on the CT KUB suggestive of possible gallstones and patient was contacted and encouraged to come back and see us if her symptoms worsened. She states that she had rather significant right upper quadrant pain with radiation over the weekend but improved on Thursday until last evening when she ate some Cheetos it seemed to really flare up. Her pain is 6/10, made worse by eating, drinking and moving radiates as mentioned above. She is not breast-feeding her child. She has been NPO since 8:00 p.m. Related Data Home Medications Medication Instructions Recorded Confirmed prenat.vits,dino,hlw-vzct-[id number] 1 tab PO DAILY 07/17/22 09/24/22 Previous Rx's Medication Instructions Recorded cefpodoxime 200 mg tablet 200 mg PO BID 10 days #20 tabs 10/05/22 Allergies Allergy/AdvReac Type Severity Reaction Status Date / Time No Known Allergies Allergy Verified 09/24/22 09:14 Review of Systems Review of Systems Narrative: GENERAL: Denies chills, fatigue, malaise, fever, sweats. HEENT: Denies sinus pain, ear pain, sore throat, difficulty swallowing, dizziness. RESPIRATORY: Denies dyspnea, cough, wheezing, hemoptysis, sputum. CARDIOVASCULAR: Denies chest pain, palpitations, orthopnea, edema, GASTROINTESTINAL: See HPI : Denies dysuria, frequency, incontinence, hematuria, urinary retention. MUSCULOSKELETAL: denies weakness, joint pain, or bony pain SKIN: Denies rash, skin lesions, or other NEUROLOGIC: Denies weakness, headache, numbness, change in speech, confusion, seizures, incoordination. PSYCHIATRIC: No concerning psychosocial issues. 12 point review of systems is negative except for those stated above Patient History Medical History Migraine Surgical History History of appendectomy Family History Father Hypertension Diabetes mellitus Grandmother Diabetes mellitus Hyperthyroidism Grandmother Hyperlipidemia Social History marital status: number of children: 0 household members: spouse lives independently: Yes housing: house pets and animals: No education level: high school occupational status: employed current occupational exposures/hazards: No special cindy needs: No seatbelt use: always helmet use: Yes water heater temp set < 120 deg: Yes working smoke detector in home: Yes fire extinguisher in home: Yes carbon monox detector in home: Yes firearms in home: No do you feel safe at home: Yes Smoking Status: Never smoker second hand exposure: No alcohol intake: former substance use type: marijuana (Several years ago, never recent) during the past year weight has: remained stable well-balanced diet: daily or most days (Much improved since ) daily servings fruits/ve-4 caffeine: Yes Type(s) of exercise: walking Smoking Status: Never smoker Substance Use Type: does not use Exam Narrative Exam Narrative: GENERAL: [27] year old patient appears stated age. Well-developed patient, in mild distress. HEAD: Atraumatic. Normocephalic. EYES: Pupils equal round and reactive. Extraocular motions intact. No scleral icterus. No injection or drainage. ENT: Nose without bleeding, purulent drainage. Throat without erythema, tonsillar hypertrophy or exudate. Airway patent. NECK: Trachea midline. Non tender CARDIOVASCULAR: Regular rate and rhythm without murmurs, gallops, or rubs. RESPIRATORY: Clear to auscultation. Breath sounds equal bilaterally. No wheezes, rales, or rhonchi. GASTROINTESTINAL: Abdomen soft, tender in epigastrum and RUQ, nondistended. +Schaefer's sign EXTREMITIES: No edema or joint tenderness. BACK: Nontender without deformity or crepitance. No flank tenderness. NEURO: AOx3. SKIN: No rash or erythema of visible areas Initial Vital Signs Initial Vital Signs: Vital Signs Temperature 97.9 F 10/09/22 03:30 Pulse Rate 83 03/02/23 03:30 Respiratory Rate 20 10/09/22 03:30 Blood Pressure 142/83 H 10/09/22 03:30 Pulse Oximetry 99 10/09/22 03:30 Oxygen Delivery Method Room Air 10/09/22 03:30 Course Orders Ordered: ED Orders 10/09/22 04:01 US abdomen limited Stat 10/09/22 04:25 Complete Blood Count AUTO DIFF Stat Comprehensive Metabolic Panel Stat Lipase Stat Discontinued Medications Hydromorphone HCl (Hydromorphone 0.5 Mg Inj) 0.5 mg IV NOW ONE Stop: 10/09/22 04:15 Last Admin: 10/09/22 04:34 Dose: 0.5 mg Documented By: ELIZABETH Sodium Chloride (Normal Saline 0.9%) 1,000 mls @ 1,000 mls/hr IV BOLUS ONE Stop: 10/09/22 04:59 Last Infusion: 10/09/22 05:45 Dose: 0 mls/hr Documented By: Admin: 10/09/22 04:34 Dose: 1,000 mls/hr Documented By: ELIZABETH Vital Signs Vital signs: Vital Signs - 8 hr 10/09/22 03:30 Temperature 97.9 F Pulse Rate 83 Respiratory Rate 20 Blood Pressure 142/83 H Pulse Oximetry 99 Oxygen Delivery Method Room Air MDM - Abdominal Pain Lab Data 10/09/22 04:25 10/09/22 04:25 Labs: Lab Results 10/09/22 10/09/22 Range/Units 04:25 04:25 WBC 10.5 (4.5-11.0) X10^3/uL RBC 4.82 (4.0-5.2) X10^6/uL Hgb 11.9 L (12.0-16.0) g/dL Hct 36.6 (36-46) % MCV 75.8 L (80-100) fL MCH 24.6 L (26-34) PG MCHC 32.5 (30-36) % RDW 20.7 H (11.6-14.8) % Plt Count 269 (150-400) X10^3/uL Neut % (Auto) 59.4 (50-75) % Lymph % (Auto) 30.3 (25-40) % Parke % (Auto) 6.9 (3-14) % Eos % (Auto) 2.7 (2-4) % Baso % (Auto) 0.7 (0-2) % Neut # (Auto) 6300 (2385-4653) /uL Lymph # (Auto) 3200 (6901-5672) /uL Parke # (Auto) 700 (0-900) /uL Eos # (Auto) 300 (0-450) /uL Baso # (Auto) 100 (0-100) /uL Sodium 137 (137-145) mmol/L Potassium 3.8 (3.4-5.1) mmol/L Chloride 105 (98-107) mmol/L Carbon Dioxide 24 (22-32) mmol/L BUN 9 (7-17) mg/dL Creatinine 0.60 (0.52-1.04) mg/dL Estimated GFR > 60 (>60) mL/min BUN/Creatinine Ratio 15.0 (6-22) Glucose 91 (70-100) mg/dL Calcium 8.9 (8.4-10.2) mg/dL Total Bilirubin 0.4 (0.2-1.3) mg/dL AST 22 (14-36) IU/L ALT 20 (<35) IU/L Alkaline Phosphatase 135 H (38-126) U/L Total Protein 7.9 (6.3-8.2) g/dL Albumin 4.2 (3.5-5.0) g/dL Globulin 3.7 (1.7-4.1) g/dL Albumin/Globulin Ratio 1.1 (1.0-2.8) Lipase 97 (23-300) U/L [facility] Narrative Medical decision making narrative: [27] year old patient presents with right upper quadrant pain with radiation to her back Multiple etiologies for patient's symptoms considered including, but not limited to: [Gallbladder disease, pancreatitis, musculoskeletal, pyelonephritis versus other] Prior Charts reviewed in our EMR Primary Historian: patient Labs reviewed and interpreted by myself: No significant lab abnormalities Imaging reviewed: Abdominal ultrasound notes gallstones and 1 contained within the neck that is nonmobile Consultations: Dr. Guerrero, general surgery Patient's symptoms and imaging consistent with gallbladder disease in eminence surgical need. Patient requires hospitalization for treatment which is likely to include surgical intervention Discharge Plan Departure Patient Disposition: Admitted As Inpatient Clinical Impression: Cholelithiasis Admit Date/Time: 10/09/22 05:38 Admit Provider: Jp Guerrero
--- NOTE | 2022-10-09 04:01 | DI.US.S_ITS ---
PROCEDURE: US ABDOMEN LIMITED INDICATIONS: RUQ pain TECHNIQUE: Real-time scanning was performed of the abdominal and retroperitoneal organs, with image documentation. COMPARISON: None. FINDINGS: Liver: Liver is normal in size and homogeneous in echotexture. Gallbladder: Cholelithiasis including a stone impacted in the gallbladder neck. Positive sonographic Schaefer sign. No gallbladder wall thickening. Biliary ducts: Intrahepatic bile ducts are non-dilated. Extrahepatic bile duct caliber measures 6 mm. Normal is 6-7 mm or less in diameter, or 10 mm or less post-cholecystectomy. IMPRESSION: Cholelithiasis with no ultrasound findings of cholecystitis but with a positive sonographic Schaefer sign. Consider hepatobiliary nuclear scan if indicated. Comment: Final report is concordant with preliminary interpretation by [facility] Dictated by: Brayan Bobo M.D. on 10/09/2022 at 8:32 Approved by: Brayan Bobo M.D. on 10/09/2022 at 8:33
[2022-10-09] MEDS: SODIUM CHLORIDE 0.9% 1,000 ML 1000 ML IV (04:34)
[2022-10-09] MEDS: HYDROMORPHONE 0.5 MG INJ IV (04:34)
[2022-10-09 04:38] LABS: Add Manual Diff / Slide Review NO; Basophils Absolute Auto 100 /uL (0-100); Basophils Percent Auto 0.7 % (0-2); Eosinophils Absolute Auto 300 /uL (0-450); Eosinophils Percent Auto 2.7 % (2-4); Hematocrit 36.6 % (36-46); Hemoglobin 11.9 g/dL (12.0-16.0); Lymphocytes Absolute Auto 3200 /uL (1100-4500); Lymphocytes Percent Auto 30.3 % (25-40); Mean Corpuscular HGB Conc 32.5 % (30-36); Mean Corpuscular Hemoglobin 24.6 PG (26-34); Mean Corpuscular Volume 75.8 fL (80-100); Monocytes Absolute Auto 700 /uL (0-900); Monocytes Percent Auto 6.9 % (3-14); Neutrophils Absolute Auto 6300 /uL (1500-7000); Neutrophils Percent Auto 59.4 % (50-75); Platelet Count 269 X10^3/uL (150-400); Red Blood Cell Count 4.82 X10^6/uL (4.0-5.2); Red Cell Distribution Width 20.7 % (11.6-14.8); White Blood Cell Count 10.5 X10^3/uL (4.5-11.0)
[2022-10-09 04:47] LABS: Alanine Aminotransferase 20 IU/L (<35); Albumin 4.2 g/dL (3.5-5.0); Albumin Globulin Ratio 1.1 (1.0-2.8); Alkaline Phosphatase 135 U/L (38-126); Aspartate Aminotransferase 22 IU/L (14-36); Bilirubin Total 0.4 mg/dL (0.2-1.3); Blood Urea Nitrogen 9 mg/dL (7-17); Calcium 8.9 mg/dL (8.4-10.2); Carbon Dioxide 24 mmol/L (22-32); Chloride 105 mmol/L (98-107); Estimated Glomerular Filt Rate > 60 mL/min (>60); Globulin 3.7 g/dL (1.7-4.1); Glucose 91 mg/dL (70-100); HEMOLYSIS < 15 (0-50); Lipase 97 U/L (23-300); Potassium 3.8 mmol/L (3.4-5.1); Sodium 137 mmol/L (137-145); Total Protein 7.9 g/dL (6.3-8.2)
[2022-10-09 06:39] LABS: Anisocytosis 1+
--- NOTE | 2022-10-09 09:58 | P.HP_ITS ---
History of Present Illness History of Present Illness Date Patient Seen: 10/09/22 Time Patient Seen: 09:59 Chief complaint: level 6 pain of gall bladder Narrative: Sakshi is a 27-year-old woman who presented with right upper quadrant pain was found to have gallstones. Pain had been gradually increasing over the past week or so. Patient History Medical History Migraine Surgical History History of appendectomy Family & Social History Family History Father Hypertension Diabetes mellitus Grandmother Diabetes mellitus Hyperthyroidism Grandmother Hyperlipidemia Social History: household members spouse lives independently Yes Safety & Behavioral: Feels Safe in Current Yes Environment Been Physically Hurt or No Threatened By a Person Tobacco & Substance use: Smoking Status Never smoker alcohol intake former Substance Use Type does not use Meds Home Medications and Allergies Home Medications Medication Instructions Recorded Confirmed Type prenat.vits,dino,iph-dwkq-byvff 1 tab PO DAILY 07/17/22 09/24/22 History cefpodoxime 200 mg tablet 200 mg PO BID 10 days #20 tabs 10/05/22 Rx Allergies Allergy/AdvReac Type Severity Reaction Status Date / Time No Known Allergies Allergy Verified 09/24/22 09:14 Exam Vital Signs (past 8 hours): - 10/09/22 03:30 10/09/22 08:39 10/09/22 08:39 Temperature 97.9 F Pulse Rate 83 71 Respiratory Rate 20 20 Blood Pressure 142/83 H 136/82 Pulse Oximetry 99 98 Oxygen Delivery Method Room Air Oxygen Delivery Method Room Air Narrative Exam Narrative: Tender to palpation in the right upper quadrant no Schaefer sign Objective Labs 10/09/22 04:25 10/09/22 04:25 Labs: Laboratory Results - last 24 hr 10/09/22 10/09/22 04:25 04:25 WBC 10.5 RBC 4.82 Hgb 11.9 L Hct 36.6 MCV 75.8 L MCH 24.6 L MCHC 32.5 RDW 20.7 H Plt Count 269 Neut % (Auto) 59.4 Lymph % (Auto) 30.3 [place] % (Auto) 6.9 Eos % (Auto) 2.7 Baso % (Auto) 0.7 Neut # (Auto) 6300 Lymph # (Auto) 3200 [place] # (Auto) 700 Eos # (Auto) 300 Baso # (Auto) 100 RBC Morphology See below Anisocytosis 1+ H Sodium 137 Potassium 3.8 Chloride 105 Carbon Dioxide 24 BUN 9 Creatinine 0.60 Estimated GFR > 60 BUN/Creatinine Ratio 15.0 Glucose 91 Calcium 8.9 Total Bilirubin 0.4 AST 22 ALT 20 Alkaline Phosphatase 135 H Total Protein 7.9 Albumin 4.2 Globulin 3.7 Albumin/Globulin Ratio 1.1 Lipase 97 Assessment & Plan Assessment and plan (1) Cholelithiasis: Qualifiers: Cholelithiasis location: gallbladder Cholecystitis presence: without cholecystitis Biliary obstruction: without biliary obstruction Qualified Code(s): K80.20 - Calculus of gallbladder without cholecystitis without obstruction Status: Acute Plan We discussed laparoscopic cholecystectomy with cholangiogram for her gallstones. I offered to try to get her in for an elective procedure in the next 1-2 weeks but she thinks she make it and she wants to have her gallbladder out as soon as possible. We will proceed pending or availability today or tomorrow Time Spent With Patient Critical Care time: I spent a total of [] minutes of critical care time on this patient's care today; this time is exclusive of procedural time.
[2022-10-09] MEDS: SODIUM CHLORIDE 0.9% 1,000 ML 125 ML IV (11:40)
[2022-10-09 12:00] LABS: COVID19 -Nasal RAPID Negative (Negative)
--- NOTE | 2022-10-09 15:39 | PC.NURSE ---
OR nurse came transferred this patient to OR chair and collected patient belongings. No report given prior to patient leaving the Emergency department.
--- NOTE | 2022-10-09 16:00 | DI.RAD.S_ITS ---
PROCEDURE: XR CHOLANGIOGRAM OPERATIVE INDICATIONS: OPERATIVE CHOLANGIOGRAM COMPARISON: None. FINDINGS: Biliary ducts: The surgeon injected contrast into the biliary ducts after cannulation of the cystic duct stump. Visualized intra- and extrahepatic bile ducts are normal in caliber, without strictures. No intraluminal filling defects to suggest retained ductal stones or sludge. No evidence for iatrogenic ductal injury. Duodenum: Contrast flows promptly through the sphincter of Oddi into the duodenum, which appears normal in caliber. IMPRESSION: Normal intraoperative cholangiogram Approved by: Boom Fleming M.D. on 10/09/2022 at 17:23
[2022-10-09] MEDS: LACTATED RINGERS 1,000 ML 42 ML IV ×2 (16:02→17:09)
[2022-10-09] MEDS: CEFAZOLIN 2 GM/100 ML PREMIX 100 ML IV (16:29)
[2022-10-09] MEDS: BUPIVACAINE 0.25% W/ EPI 30 ML VIAL INJ (16:37)
--- NOTE | 2022-10-09 16:41 | SUR.OPER ---
Addendum entered by Cristy Portillo R.N. 10/09/22 16:43: Pt positioned per direction and supervision of Dr Clark. Original Note: Supine on padded OR bed, head on pillow, safety belt at thigh, left arm padded and tucked at side. Bilateral arms extended on armboarded, with stap. Legs uncrossed. Padded footboard in place. Tape over blanket to secure lower legs.
[2022-10-09] MEDS: IOPAMIDOL 30 ML VIAL INJ (16:57)
--- NOTE | 2022-10-09 17:59 | P.OP_ITS ---
Operative Date/Time/Diagnoses Date of procedure: 10/09/22 Time of procedure: 17:59 Pre-op diagnosis: Cholelithiasis cholelithiasis Post-op diagnosis: same Procedure & Clinicians Procedure: Laparoscopic cholecystectomy with intraoperative cholangiogram Same procedure as scheduled: Yes Surgeon: Luis Clark Operative Notes Procedure in detail: The patient was given preoperative antibiotic. The patient was brought to the operating room, placed on the table in the supine position. General endotracheal anesthesia was induced. The abdomen was prepped and draped. A time-out was performed. We made a 1 cm infraumbilical incision. We dissected down to the base of the umbilical stalk using cautery. We grasped the umbilical stalk with a Nicolás clamp to elevate the abdominal wall. We scored the fascia in the midline with cautery 1 cm. We pierced the peritoneum with a Peon clamp. The Maday port was placed and the abdomen was insufflated to 15 mmHg. A 5 mm 30 degree laparoscopic was inserted. There was no evidence of any injury from the entry. Next, we placed 5 mm ports in the subxiphoid position and right upper quadrant at the midclavicular line and anterior axillary line. The patient was then positioned in reverse Trendelenburg and the table was tilted to the left. The gallbladder was grasped at the dome and retracted cephalad. We then dissected the cystic structures with a combination of hook cautery and blunt dissection. We obtained a critical view. Next, a cholangiogram was performed using the 6 Hebrew ureteral catheter. There was good flow of contrast into the duodenum and liver with no obvious filling defects. The cystic duct- common duct junction was well visualized. We then placed hemoclips on the cystic duct and artery and divided the cystic duct and artery sharply between the clips. The gallbladder was then dissected off the liver and placed in a specimen retrieval bag. We irrigated the right upper quadrant and all the aspirate returned clear. We then removed the 5 mm ports under direct vision we removed the [place] port. We then injected some local into the fascia and closed the fascia with 2 interrupted 0 Vicryl sutures. The skin incisions were closed with 4 Monocryl and Steri-Strips were applied. Band-Aids were applied over the Steri-Strips. EBL: 10 mL Specimen: Gallbladder Post-operative Disposition: PACU
[2022-10-09] MEDS: OXYCODONE IR 5 MG TABLET PO (18:08)
[2022-10-09] MEDS: ONDANSETRON 4 MG/2 ML INJ IV (18:09)
== END 2022-10-09 18:35 | disposition home or self-care (01) ==
LOC: ED 05:30 → AC 06:57
PROVIDERS: Surgery; Admitting Provider Surgery; Emergency Provider Emergency Medicine; Referring Provider Emergency Medicine; Visit Provider Surgery
PROC: 0FT44ZZ Resection of Gallbladder, Percutaneous Endoscopic Approach (ICD-10-PCS; CPT 47562; principal; 2022-10-09 16:00)
DX: K80.20 Calculus of gallbladder without cholecystitis without obstruction (principal); Z20.822 Contact with and (suspected) exposure to COVID-19
CPT/HCPCS: 47563; 36415; 74300; 76705; 80053; 81025; 83690; 85025; 87635; 96361; 96374; 96375; 99221; 99284; C9803; G0378; J0690; J1100; J1170; J1885; J2405; J2704; Q9967

== ENCOUNTER → 2023-04-08 14:15 | Outpatient (CLI) | payer OTHER, SELFPAY ==
[2023-04-10 11:09] LABS: Candida species Negative (Negative); Gardnerella vaginalis Negative (Negative); Trichomoas vaginalis Negative (Negative)
== END ==
PROVIDERS: Visit Provider Obstetrics & Gynecology
DX: N89.8 Other specified noninflammatory disorders of vagina (principal)
CPT/HCPCS: 87480; 87510; 87660